=== PATIENT | male | born 1960 | race Caucasian/White ===

== ENCOUNTER 2021-07-23 15:55 | Emergency (ER) | payer OTHER ==
[~2021-07-23] VITALS: Ht 160 cm; Wt 90.7 kg
[2021-07-23 15:59] VITALS: BP 147/83
[2021-07-23] MEDS ORDERED: LEVOTHYROXINE112 MCG PO (17:05)
[2021-07-23] MEDS ORDERED: CELEXA 20 MG TA20 MG PO (17:05)
[2021-07-23] MEDS ORDERED: DESYREL150 MG PO (17:05)
[2021-07-23] MEDS ORDERED: LIPITOR 40 MG T40 M1 PO (17:06)
[2021-07-23] MEDS ORDERED: LOSARTAN POTAS100 MG PO (17:06)
[2021-07-23] MEDS ORDERED: QUETIAPINE FUM200 MG PO (17:06)
[2021-07-23] MEDS ORDERED: QUETIAPINE FUMA50 MG PO (17:06)
[2021-07-23] MEDS ORDERED: METOPROLOL SUCC50 MG PO (17:06)
[2021-07-23 20:12] VITALS: BP 153/73
== END 2021-07-23 20:12 ==
LOC: ER 15:55 → EROBS 19:57 → ER 20:12
PROVIDERS: Physician Assistant
DX: F91.9 Conduct disorder, unspecified (principal); Z20.822 Contact with and (suspected) exposure to COVID-19; I10 Essential (primary) hypertension; F32.9 Major depressive disorder, single episode, unspecified; J45.909 Unspecified asthma, uncomplicated; Z98.890 Other specified postprocedural states; Z79.1 Long term (current) use of non-steroidal anti-inflammatories (NSAID); Z79.891 Long term (current) use of opiate analgesic; Z79.899 Other long term (current) drug therapy; Z88.2 Allergy status to sulfonamides

== ENCOUNTER 2021-07-23 17:55 | Inpatient (IN) | payer OTHER ==
[~2021-07-23] VITALS: Ht 160 cm; Wt 108.4 kg
[~2021-07-23 17:55] MED LIST: CELEXA 20 MG TA20 MG PO; DESYREL150 MG PO; LEVOTHYROXINE112 MCG PO; LIPITOR 40 MG T40 M1 PO; LOSARTAN POTAS100 MG PO; METOPROLOL SUCC50 MG PO; QUETIAPINE FUM200 MG PO; QUETIAPINE FUMA50 MG PO
[2021-07-24 00:21] VITALS: BP 152/84
--- NOTE | 2021-07-24 02:58 | NUR ---
Khari arrived to [facility] from the ER at 2018 via wheelchair and ED staff. He was cooperative throughout the admission process. He presented with a disorganized and tangential thought process as pt would ramble when talking and it was difficult to follow along with what the pt was saying. He was alert and oriented x4 and endorsed passive SI at this time. He denied a plan, although was evasive when answering this question, but was able to contract for safety. He denied HI/MEDINA. Khari is being admitted due to an SI attempt where he intentionally OD'd on #30 of trazodone 150 mg on 07/20. He stated that what the "aircraft engine cylinder mechanic" told him upset him, and he stated "I'm not depressed but when everything happens at once my anxiety gets out of control". Pt expressed that he has a hx of bipolar "with anxiety and OCD" and experienced a panic attack Wednesday morning, prior to his suicide attempt. Pt expressed he immediately called his brother because "I'm too chicken to ". He stated that his last manic episode was around and that he "charges things to his account" to where he spends all of his money. He reported difficulty getting a job as he "made a stupid mistake" and has a misdemeanor for theft and has had difficulty getting a job since. He reports past suicide attempts, the last was Oct where he took more lithium than prescribed. He also reports he lost his father in Oct and was his primary caregiver leading up to his . He spoke about his brothers and neices, and appears to have good support within his family. He stated he was taking trazodone at as he has "racing thoughts at night and can't sleep". Pt arrived to the unit with clothing items that have been inventoried. Pt appeared dischelved and unkept upon arrival. Pt was medication compliant this evening and has been withdrawn and isolative to his room since his arrival. Pt stated he had a BM after his arrival to the unit and did not endorse any physical complaints at this time. Will continue to monitor.
[2021-07-24 05:57] LABS: CHOLESTEROL 176 mg/dL (<200); HDL CHOLESTEROL 46 mg/dL (>40); LDL CHOLESTEROL 102 mg/dL (<100); TC:HDL 3.8 Ratio (Not establshd); TRIGLYCERIDE 142 mg/dL (<150); VLDL 28 mg/dL (<40)
[2021-07-24 06:27] LABS: SERUM ASSESSMENT Clear
[2021-07-24 09:09] VITALS: BP 127/81
[2021-07-24 09:54] LABS: FOLIC ACID 17.8 ng/mL (8.6-58.9)
--- NOTE | 2021-07-24 13:22 | NUR ---
New admit to [facility]. Noted pt triggered high risk screen for 2-14 lb loss and decreased appetite. Pt unavailable at time of visit, unable to determine weight hx. Refused breakfast and lunch today, admitted late last noc. Will add Ensure daily until intake pattern can be assessed. RD to follow up r/t weight and intake hx. Low nutrition risk at this time.
--- NOTE | 2021-07-24 13:30 | NUR ---
RESUMMED CARE FROM OVERNIGHT SHIFT THIS AM, PATIENT IN ROOM LYING QUIET. PATIENT ALERT ORIENTED TIMES 4 PATIENT DENIES HI/AH/VH AT PRESENT DOES HAVE PASSIVE SI. PATIENT STATES HE HAS ANXIETY THAT HE RATES AT A 8, DENIES DEPRESSION. PATIENT ATE BREAKFAST TOOK MEDICATION WITHOUT INCIDENCE, PATIENTS ABDOMEN SOFT BOWEL SOUNDS PRESENT. PATIENTS LUNGS CLEAR PATIENT WHEN ASKED TO EAT IN HIS ROOM FOR MEALS; PATIENT STATED TO ME THAT HE IS SUICIDAL. I TOLD THE PATIENT HE HAS TO STAY IN THE DAY ROOM; I SHUT HIS DOOR. STAFF GOES WITH HIM TO HIS ROOM WHEN HE HAS TO USE THE BATHROOM. I TOLD DR UMANA ABOUT THE INCIDENCE. WILL CONTINUE TO MONITOR PATIENT FOR SAFETY AND BEHAVIORS.
[2021-07-24 19:53] VITALS: BP 125/97
[2021-07-24 21:54] VITALS: BP 127/55
[2021-07-24 22:10] VITALS: BP 125/97
--- NOTE | 2021-07-25 02:19 | NUR ---
Khari was alert and oriented x4 this shift. He was in the dayroom at the beginning of the shift watching TV until he went to bed. He voiced excessive worries regarding needing to get his booster shot and regarding his car. When asked if he was experiencing SI he denied and again mentioned his stressors once returning home. Pt was medication compliant and shortly after went to bed. Pt denied HI/MEDINA. Pt voiced worries about not being able to sleep and was encouraged to let this nurse know if he had difficulties. Pt at this time (0224) has not been noted getting up. Will continue to monitor.
--- NOTE | 2021-07-25 06:05 | NUR ---
At 0550 pt came out of his room expressing he felt sick to his stomach and did not sleep at all. This RN went and talked to him in his room and offered pt zofran which he declined as he stated it was anxiety related. Pt stated that he continues to experience panic attacks and stated multiple times "it's not getting better. I'm going home to the same thing" and appeared preoccupied with what he has to deal with once he's home. Emotional support given and pt encouraged to use deep breathing techniques but he responded "I can't". He also stated "I can't cope". He expressed that he feels he is getting worse and pt was educated that his body is adjusting to his medication changes and that this is not abnormal. Encouragement given to work on coping skills while he is here at the hospital and to talk to Dr. Rodarte regarding his concerns.
[2021-07-25 10:20] VITALS: BP 132/89
--- NOTE | 2021-07-25 11:08 | NUR ---
SPEECH MUMBLED AND DIFFICULT TO UNDERSTAND-CONVERSATION FRAGMENTED AND DISORGANIZED,FREQUENTLY VOCALIZING NEGATIVE THOUGHTS "I'M NO GOOD" "I CAN'T TAKE CARE OF MYSELF" "ITS NOT GOING TO GET ANY BETTER" REPORTS HAVING MOOD SWINGS AND RACING THOUGHTS WELL HEARING A VOICE TELLING HIM THAT HE MAY WELL "GIVE UP" BECAUSE "THINGS ARN'T GOING TO GET ANY BETTER" ASKED FOR ASSIST WITH AM SHOWER STATING "I STINK" AND LATER STATES HE NEEDS SOME UNDERWEAR BECAUSE "I HAD TO WASH MINE OUT BE HAND YESTERDAY" DID GO INTO BATHROOM AND RUN WATER IN SHOWER BRIEFLY BUT REQUIRED STAFF TO WIPE FECES FROM PERINEAL AREA AND PUT ON BRIEF AND ASSIST WITH CLOTHING CHANGE. GAIT IS STEADY WITHOUT ASSISTIVE DEVICES-PACING IN HALLWAYS DURING FREE TIME
--- NOTE | 2021-07-25 12:44 | NUR ---
07-25-2021--1230--Call receoived from patient's daughter re: paperwork being faxed to [facility] where the patient came from. I explained I have tried 3 different times with thrree numbers that were given to me by [employer] and my fax report says "no response". I receoived another number [phone] and tried to fax to this number and it came back no response again. I gave daughter the update I received this am in team meeting. She states her mother called the nurse this AM and has not received a call back and she asked me to have the RN call her mother. RN states she has the mother's number but she has been gone for seven days and doesn't have any information about him. I suggested she have Swathi RAMOS call the and goive her information as she hs been here every day. Call tried again to [employer] ([phone]) no answer; message left to call me back.
--- NOTE | 2021-07-25 18:11 | NUR ---
WILBERT and Dr. Rodarte were able to talk to the Pt's brother/DPOA, Yves Cook over the phone, . Yves was able to give a brief history. Pt has had a lifetime of mental illness. Pt has a dx of Bi-polar and OCD. Pt has been hospitalized several times over the last 15 years. Pt was hospitalized at [address], [facility], and [place]. Pt recieves mental health services through [facility] which includes medication mangment and case mangement. The Pt's case planner is Henry Canales, . Pt's father was his caregiver until he passed several years ago. Since the Pt has lived on his own. Pt has a history of impulsive spending. Yves manages the Pt's money and pays his bills. Pt has no children. Yves is intrested in a prison placement for the Pt. Yves denied that the Pt had any developmental disabilites. There were no other questions or concerns at this time. A family meeting was set for 07/29/2021. This will be by phone. WILBERT will continue to follow. WILBERT did call the Pt case planner and left a message for a call back as of this not there has been no call back.
[2021-07-25 20:28] VITALS: BP 114/65
--- NOTE | 2021-07-26 03:44 | NUR ---
07-25-21 CARE TRANSFERRED 1899 OBSERVED PT WALKING IN HALLWAY. LATER PT AAOX4, VSS, RR EVEN AND NONLABORED ON RA. PT DENIES SI/HI/VAH AND PAIN. PT STATES "THE MEDICATION IS WORKING, I AM NOT HEARING THAT LITTLE VOICE" PT PLEASANT, CALM AND COOPERATIVE THROUGHT NURSING ASSESSMENT. DURING MEDICATION PT HAD NO DIFFICULTIES.
[2021-07-26 07:30] VITALS: BP 144/80
--- NOTE | 2021-07-26 13:15 | NUR ---
Assumed pt care at 0700. pt was alert and oriented x4. Assessments completed, vss. Lungs clear, active bowel sound, Denies pain at this time. Cooperative. Took meds whole, no dificulty noted. Ambulates with a steady gait. No sign of acute distress noted upon assessments. Continent of bowel and bladder this shift. Makes needs known to staff. 1310 pt stated to staff he wants to kill himself. Writter assessed pt. Pt stated he wants to kill him self because he has bed bugs in his house. Pt continued to say he did not want to go back to a house filled with bed bugs. Pt denies having any plan at this time. Pt wander the unit hallway. AT this time pt is in his room. Will continue to monitor.
--- NOTE | 2021-07-26 20:17 | H ---
[facility] [address] [place] [address] HISTORY AND PHYSICAL Name: ELEUTERIO BARRIOS Room #: 517-A ADM IN [facility]#: [id number] Admission: 07/23/21 Attend Phys: David Rodarte DO Discharge: Date of : 58 Report #: [id number] THIS REPORT FOR: cc: Kamlesh Marrufo MD, Steven A. MD Kerstein,David Duvall DO ~ DATE OF SERVICE: 07/24/2021 INPATIENT PSYCHIATRIC EVALUATION ATTENDING PSYCHIATRIST: David Rodarte DO SR COMMUNITY MANAGER: Oralia Can APRN and Josh Anglin MD and his hospitalist team. SOURCES OF INFORMATION: Records from [facility], interview with the patient, chart review. CHIEF COMPLAINT: "Medication is not working." HISTORY OF PRESENT ILLNESS: This is a 60-year-old obese, BMI 42.4, male, has a graf. The patient was apparently brought on 07/20/2021 to [facility]. He overdosed on trazodone, "I have told my brother, I have told my interest in pills. The patient was lethargic, slurring words much of the time, states that he wants help. His called his brother. His brother was apparently out of the town, in [place]. His brother is actually now driving back to [place]. I reached his brother, Yves on [phone]. The patient has had suicide attempts in the past. PAST PSYCHIATRIC HOSPITALIZATIONS: Include numerous psychiatric center admissions in 2009 and 2014. The patient told he took 20-30 trazodone to kill himself. The patient denies drug or alcohol use. He reports being hospitalized in 10/2020 for suicidal ideation. The patient does not remember where. It was 30 tablets of 150 mg trazodone at 9:00 a.m. REVIEW OF SYSTEMS: From [facility]: CONSTITUTIONAL: Denies fever. CARDIOVASCULAR: Denies chest pain. GASTROINTESTINAL: Denies abdominal pain, nausea, vomiting. NEUROLOGIC: Denies headache. PSYCHIATRIC: SI,AH-command. Interestingly, he denied auditory hallucinations at [facility]. He did tell me today that he heard the voice telling him to go ahead and take it. It was hard to get a great history of hallucinations he is having, but from his description, they have been presents in last several weeks. [address] [address] HISTORY AND PHYSICAL Name: ELEUTERIO BARRIOS Room #: 517-A [facility]#: [id number] Admission: 07/23/21 Attend Phys: David Rodarte DO Discharge: Date of : 58 Report #: [id number] MEDICATIONS: Cholecalciferol; vitamin D3, 2000 international units p.o. daily. Lisinopril 10 mg oral daily, levothyroxine 75 mcg oral daily, alprazolam 0.5 mg p.o. 3 times a day, Seroquel 400 mg at bedtime, atorvastatin 5 mg p.o. at bedtime, trazodone 150 mg p.o. at bedtime, aspirin 81 mg oral daily. MEDICAL HISTORY: Hypertension, hypothyroidism, insomnia, obesity. PSYCHIATRIC HISTORY: Depression, suicidal ideation, bipolar disorder. LABORATORY DATA: EKG at [facility] on 07/22/2021 showed QTc interval of 455 milliseconds, QT 408 milliseconds, NJ interval 176 milliseconds, normal sinus rhythm. Labs from 04/19/2021; sodium 140, potassium 4.6, chloride 103, bicarbonate 28, anion gap 14, BUN 13, creatinine 1.1, GFR 72, glucose 124, calcium 9.0, total bilirubin 0.4, AST 30, ALT 37, alkaline phosphatase 152, total protein 8.0, albumin 3.8. White blood cell count 8.2, H and H 14.9 and 47.5, platelet count 274. SARS-CoV-2 rapid was negative. It looks like this was from 07/20. UDS was positive for tricyclics- likely due to quetiapine. UDS was negative. The patient was medically cleared for psychiatric admission. While this was achieved on the and he did not arrive till today- unsure of why the delay. [facility] was faxed information, request. Labs here at [facility]; A1c is pending, triglycerides 142, cholesterol 176, HDL 46, B12 of 519, folate 17.8. TSH 2.003. COVID-19 serology was not detected. PHYSICAL EXAMINATION: VITAL SIGNS: Temperature 36.4, pulse 83, respirations 19, BP 127/81, and O2 sat 91% on room air. GENERAL: Well-developed, disheveled, obese male, apparently stated age. Slow gait, normal station. MENTAL STATUS EXAMINATION: Well-developed, somewhat ill-appearing male, apparently looks stated age. Attention fair. Concentration limited. Speech soft, difficult to understand. Unclear whether this was just psychomotor retardation or some form of dysarthria. Thought process linear and goal directed. Thought content focused on medications, not working. He did admit to staff having SI earlier in the day, denies currently. Some helplessness, hopelessness. Mood and affect depressed, congruent and restricted. Memory not [facility] [address] [place] [address] HISTORY AND PHYSICAL Name: ELEUTERIO BARRIOS Room #: 517-A ADM IN [facility]#: [id number] Admission: 07/23/21 Attend Phys: David Rodarte, DO Discharge: Date of : 58 Report #: [id number] formally tested. I have deferred to Dr. Anglin due to his degree of perceived depression, psychomotor retardation. Insight and judgment limited. Fund of knowledge, no greater than average. EDUCATIONAL HISTORY: Reports high school. Reports he has been on disability. It is unclear if he has ever been or had kids. CRIMINAL JUSTICE HISTORY: Reports he has a misdemeanor burglary charge for stealing cigarettes. FORMULATION: A 60-year-old male, transferred from [facility] after intentional suicide attempt with trazodone. DIAGNOSES: At this time, major depressive disorder, single episode, severe degree; to rule out bipolar disorder by history; multiple morbidities including obesity, hypertension, hyperlipidemia, hypothyroidism. Also, in the hospice today, he denied fever, chills, nausea, vomiting, diarrhea, chest pain, dizziness, blurred vision, or headache. Ten-point review of systems done by the hospitalist today was negative. Physical exam was essentially normal. The patient is a full code. ALLERGIES: SULFONAMIDE DRUGS. STRENGTHS: He is insured, has his brother, sounds like he lives in low income housing. LIMITATIONS: Poor coping skills. He did say his psychiatric provider at [facility] but did not know the name. PLAN: Voluntary admit to [facility] Evaluate and Stabilize Start Risperdal1 mg bid D/C seroquel due to sedation, ? efficacey in this case Call the brother Yves for telephoe conference [phone]. CURRENT MEDICATIONS: In the hospital, atorvastatin 40 mg daily, Celexa 20 mg oral daily, famotidine 20 mg oral daily, levothyroxine 112 mcg oral daily, Cozaar 100 mg p.o. daily. I discontinued the Seroquel. He was on a 250 mg total daily dose and was started on Risperdal 1 mg p.o. b.i.d. for the auditory hallucinations as well as augmentation of the Celexa. I want to wait to get a better psychiatric treatment history tomorrow from the brother. I have asked forensic social worker to attempt to get his recent treatment records from [facility] [place] [address] HISTORY AND PHYSICAL Name: SOPHIEELEUTERIO J Room #: 517-A ADM IN [facility].#: [id number] Admission: 07/23/21 Attend Phys: David Rodarte DO Discharge: Date of : 58 Report #: [id number] Time spent on this case was in excess of 60 minutes, greater than 50% of the time spent reviewing records and coordination of care. <ELECTRONICALLY SIGNED> By: David Rodarte DO 07/26/212016 [id number] [id number] David Rodarte, /nt
--- NOTE | 2021-07-27 02:29 | NUR ---
07/26/21; Pt is alert/oriented, very anxious and not able to redirect. Pt is very fixated on losing his house, not being able to live on his own, not being able to pay his bills. Initially wanted something for sleep but then states' It aint gone help" 1;1 comfort attempt with minimum sucess pt just repeats over and over "it aint gone help" Pt took medications whole without difficulty. Throughout shift remains fixated on his situation. Denies SI/HI/AH/VH.
--- NOTE | 2021-07-27 03:05 | NUR ---
Pt noted by a nurse to be trying to choke himself, Telephone call to FUNDER Carla, order for 1:1, discussed that the plan is to bring him out in the dayroom, Pt has hydroxine ordered gave him PRN dose. Will put the order in for 1:1 while in room but to have him in day room for closer monitoring until able to provide 1:1. Will also make sure oncoming shift is aware and that pt receives further work up. Pt is not able to be redirected and continues to just say his situation is not going to change.
[2021-07-27 06:53] VITALS: BP 154/87
--- NOTE | 2021-07-27 08:51 | NUR ---
07-27-2021--4160--Patient seen at his request. He states he is worried about the bill he is going to get from here. He states he only has Medicare and thinks he makes too much for [employer]. I explained that we could [facility] so [facility] can help him aply for this. He was agreeable to this.
[2021-07-27 15:15] VITALS: BP 149/97
[2021-07-27 20:00] VITALS: BP 154/87
[2021-07-27 20:11] VITALS: BP 127/66
--- NOTE | 2021-07-27 20:42 | NUR ---
Resummed care from overnight shift this am. Client was in activity area resting as client was on room lock out due to previously attempting to choke himself in his room. Client currently remains on room lockout at the time of this note, and is to remain on room lock out or one to one if in room per JORDY Aguirre. Client presented calm and appropriate. Client was oriented 4x and presented with pleasant mood. Client voiced that he was still having depression and anxiety, and rated depression and anxiety 8/10 for both, stating that he was struggling with being in the facility, and adjusting. Client was encouraged to use coping skills at this time, and encouraged to talk to staff. Client stated that he was tired, but that he was not suicidal or homicidal at this moment when quesitons where asked. Client denied audio or visual hallucinations. Client voiced no pain during this time, and stated that he had a bowel movement this morning. Vitals were rechecked to ensure health, and were found to be 149/97 bp, 98 O2. During assessment, client was fixated on how he was going to pay his bills, stating that he needed to contact the IRS, and stated that "the social workers are stealing my wallet" "I need to call about my bills." Client was assured that someone would speak to him from social work, but that no one was stealing his money. Client was also assured that he would be speaking with care team soon. Client agreed, and was calmer after this. At time of this note, client is still on room lock out. No behaviors or concerns at this time.
--- NOTE | 2021-07-28 02:01 | NUR ---
PATIENT WAS SITTING UP IN DINING ROOM THIS EVENING. HE IS A/0X4. HE IS SPEAKS LOW AT TIMES AND ALMOST IF HE MUMBLES. PATIENT DENIES PAIN, SI/HI/AVH. PATIENT IS ON ROOM LOCK OUT AND IS ON 1:1 WHEN HE IS IN HIS ROOM. PATIENT HAD TO START OUT SLEEPING IN DINING ROOM THIS EVENING D/T UNABLE TO BE 1:1 WITH PATIENT. HE WAS FRUSTRATED WITH THIS. DID MOVE PATIENT BACK TO HIS ROOM ONCE ABLE TO BE 1:1 WITH PATIENT. PATIENT HAS BEEN RESTING WITH EYES CLOSED SINCE IN HIS ROOM. HE IS INDEPENDENT WITH CARES. HE HAS BEEN CALM AND COOPERATIVE TONIGHT. BED IN LOW POSITION AND BED ALARM ON. ROUTINE ROUNDS TO ASSESS SAFETY AND STATUS OF PATIENT. PATIENT TOOK HIS MEDS WHOLE WITH WATER. CONTINUING TO MONITOR.
[2021-07-28 09:52] VITALS: BP 148/83
--- NOTE | 2021-07-28 15:34 | NUR ---
DENIES SI THIS AM DURING AM ASSESSMENT-CONTINUES TO MUMBLE/TALK VERY SOFTLY WITH CHIN IN CHEST BUT FREQUENCY SIGNIFICANTLY LESS. ASKS MULTIPLE TIMES TO GO BACK TO ROOM AND APPEARS TO HAVE NO INSIGHT INTO CORRELATION OF HIS SUICIDAL COMMENTS AND GESTURES AND CURRENT ROOM LOCKOUT/RESTRICTIONS. WILL OCCASSIONALLY GET UP AND PACE IN HALLWAY. COMPLIENT WITH MEDS-IS PRESENT IN GROUP BUT LITTLE ACTIVE PARTICIPATION OBSERVED.GAIT STEADY WITHOUT ASSISTIVE DEVICES.
[2021-07-28 20:00] VITALS: BP 108/66
[2021-07-28 20:04] VITALS: BP 108/66
[2021-07-28 22:06] LABS: SYPHILIS AB Non Reactive (Non Reactive)
--- NOTE | 2021-07-28 22:33 | NUR ---
Patient sitting in recliner chair in dining room this evening upon assumption of care. Patient is A/O x4 and able to verbalize needs. Speech is low in volume and patient has a flat affect. Denies pain, SI/HI/AVH at present time. Ambulated independently to patient room at with slow and steady gait. Resting in bed with eyes closed. Bed is in low position, bed alarm on, with patient items within reach. Takes meds whole with sips of water. Cooperative with plan of care. Continue to monitor.
[2021-07-29 10:02] VITALS: BP 142/84
--- NOTE | 2021-07-29 15:03 | NUR ---
Khari was alert and oriented x4 this shift. He presented as calm, cooperative, and pleasant. He was noted frequently smiling this shift and told this RN "I'm not wanting to kill myself today, I finally got some sleep last night". Pt denied SI/HI/MEDINA and contracted for safety stating he would seek out staff if he started to experience suicidal thoughts. He expressed he feels things have improved since admission. He was medication and meal compliant and asked for "anxiety medication" this morning, given at 0948 for an anxiety level of 7/10; 10 being the worst. Pt stated medication was effective in lowering his anxiety. Pt was social with peers this shift but required redirection/education when pt was noted giving a female pt a back massage. Pt responded appopriately to redirection and attended groups this shift. Will continue to monitor.
[2021-07-29 19:30] VITALS: BP 108/55
[2021-07-29 19:50] VITALS: BP 108/55
--- NOTE | 2021-07-30 02:26 | NUR ---
PATIENT CARE WAS RESUMED AT 1900. HE IS ALERT AND ORIENTED . HE AMBULATE AND DENIES PAINS. LUNGS ARE CLEAR BS ACTIVE X4 QUAD. ABLE TO VERABLIZE SOME NEEDS. HE IS CONTINET OF BOWEL AND BLADDER. DENIES PAINS/SI /AVH/HI. BED IS LOW, LOCKED.HE TOOK HIS MEDS WHOLE, CONTINUE CARE AND MONITOR
[2021-07-30 10:46] VITALS: BP 142/84
--- NOTE | 2021-07-30 11:02 | NUR ---
RT Progress Note- Khari has been present in the milieu as he was previously placed on room lockout d/t suicidal statments and ideation. He has also been present in groups though participation is very variable based on his mood. Khari often perseverates on things like his car repair, his brother, or the lawn that needs to be mowed at home. He is very verbal on updating his SI status to the group, which varies from him being suicidal to no longer suicidal and slightly hyper active. EDDY CURRENT INSPECTOR and RT team will continue to encourage his participation and progress.
[2021-07-30 11:07] VITALS: BP 142/84
--- NOTE | 2021-07-30 17:30 | NUR ---
Pt was alert and oriented x4 this shift. He presents with a flat affect and appears more depressed and withdrawn than the previous day. He reports that he did not sleep well last night, "only 2 hours", and repeatedly made statements of, "I'm going back to the same thing" and appeared to be very preoccupied and focused on this. This RN reminded pt that he had a meeting yesterday and SW and staff were working on finding pt an assisted living where he can receive more help but pt did not seem to process this information. He endorsed passive SI but was hesitant to express this information to this RN because "I don't want to be locked out of my room". Pt denied a plan/intent and was able to contract for safety. Pt was encouraged to be honest with staff and that if he can seek out staff when his SI thoughts are worsening, his room would not need to be locked; pt agreed. Pt took periodic naps throughout the day but was otherwise in the dayroom and participated in groups. He voiced wanting to continue group therapy after discharge. He rated his depression 10/10 and anxiety 10/10 this shift; 10 being the worst. He denied HI/MEDINA. Pt made his brother, Yves, his DPOA this shift and Yves came to chart picker pt's keys to his apartment to help pt with his belongings. Pt was given mag hydroxide for constipation as pt stated his last BM was about 3 days ago, this was communicated to Dr. Silva as well. Pt was medication and meal compliant this shift, without difficulty. He has not voiced any physical complaints this shift, will continue to monitor.
[2021-07-30 19:44] VITALS: BP 113/54
--- NOTE | 2021-07-31 00:18 | NUR ---
At onset of cage shift manager pt was resting in bed awake. This shift pt was alert and oriented x4. Pt was not very talkative with show card writer and did not make eye contact. Pt did deny SI, HI and AVH. Pt was compliant with vital signs and medications. Pt requested a sleep PRN and requested hydroxyzine; recieved both with HS medications. Pt appeared calm and pleasant. Pt is a low fall risk and independent. Will continue to monitor.
--- NOTE | 2021-07-31 07:14 | NUR ---
07-30-2021--Call made with MD to DANIEL to advise him that [employer] would only pay through the . Won't pay for weekend. Need to place soon. Yves SANCHEZ lifes in [facility]. Three options given to DANIEL by Doctor 1) return to his apartment with case management from [facility] 2)friend or family mmber he can stay with [facility] to buy some time for placement and long term care social worker solution DANIEL Marinelli will call brother, Henry who is also a DPOA.
[2021-07-31 09:40] VITALS: BP 166/94
--- NOTE | 2021-07-31 15:37 | NUR ---
WILBERT and Dr. Butler spoke with Yves concerning discharge. Yves is in agreement with Pt being placed. Yves stated that he would like the Pt to be placed. Yvess suggested a SNF stay. It was explained that Pt would need to meet critieria for a SNF. PT and ST was ordered on the pt. Yves is in agreement with a respite stay for the Pt also. A meeting was set for 08/04/2021 @ 11am for and update. WILBERT will send out referrals
--- NOTE | 2021-07-31 18:23 | NUR ---
Pt has been calm and co-operative this shift. He came out to the dayroom for meals and group. Upon assessment this morning, he denied having thoughts of SI/HI. Appears to be in better spirits today. He has been smiling at times. This morning, pt also reported he did not sleep well because of his roommate keeping him up throughout the night. Pt complained of having some pain in both of his knees, PRN Tylenol administered and was effective. Pt has not had any other complaints since. Pt had a bowel movement this shift. He has had a good appetite and fluid intake.
[2021-07-31 19:29] VITALS: BP 162/84
--- NOTE | 2021-08-01 04:35 | NUR ---
Assumed care of patient at 1900. Patient AOX3 this shift. Resting in bed with eyes closed at beginning of shift et isolated in room most of the shift. Ambulates room ad fior with steady gait and no balance issues noted. VSWNL. Health assessment with no abnormalities noted at present time. Patient denies SI/HI/AVH at present time. Denies any pain or discomfort at present time. Compliant with medication regimen. Answers questions appropriately when asked and verbalizes thought process without difficulty. Currently resting in bed with eyes closed. Will continue to monitor per unit protocol. PRN Hydroxyzine and Trazodone given with HS meds per patient request for anxiety and insomnia. Both medications appear to have been successful in relieving symptoms.
[2021-08-01 07:06] VITALS: BP 147/85
--- NOTE | 2021-08-01 09:19 | NUR ---
Nutrition followup: pt eating 100% of most meals on 2 gm Na diet. No weight since 07/23. Continue to request updated weight. Noted plan is for placement at discharge. Low nutrition risk.
[2021-08-01 11:20] VITALS: BP 147/85
--- NOTE | 2021-08-01 12:46 | NUR ---
Resummed care from overnight shift this am. Client was in room resting on bed. Client presented oriented to self, situation, and year, though was not oriented to date. Client denied any depression when asked, though did voice anxiety. PRN hydroxizine was given to help with this. Client denied any suicidal or homicidal intention at this time, stating that he felt better than he did when he first arrived. Client denied any visual or audio hallucinations at this time. Lung sounds were clear; bowel sounds present. Per client report, last BM was this morning. Client was given pt education this morning in regard to medications, but declined to verbalize back what he was taking. Client was also encouraged to go to group during this time, but client stated that he did not want to go to group, and declined to participate. During 10am, OT came for client session. Client was encouraged to participate in OT, but stated that he could not at this point. When asked if he wanted a shower, client stated that he had already taken one and didn't want one to staff and OT. Client has been isolating in his room during this shift as he has been doing for several days. 12 minute checks done to ensure safety. No current concerns at this time. Will continue to encouraged client to attend groups and sessions.
--- NOTE | 2021-08-01 16:35 | NUR ---
WILBERT faxed referrals to the following [facility]
[2021-08-01 20:58] VITALS: BP 109/69
--- NOTE | 2021-08-02 00:19 | NUR ---
At onset of shift pt was sitting in the day room. Pt was locked out of his room by day shift. Pt was irritated that he was locked out of his room. Pt was observed talking to himself quietly. Pt denied SI and HI. Pt told RN that he was not having thoughts of hurting himself and pt agreed that he would come to staff if he started having thoughts of SI. RN allowed pt back in his room. Pt was compliant with vital signs and medications; recieved PRN trazodone. Pt was minimally talkative with RN. Speech is quiet, pt made poor eye contact. Pt does smile when answering questions. Will continue to monitor.
[2021-08-02 10:54] VITALS: BP 112/77
[2021-08-02 15:43] VITALS: BP 112/77
--- NOTE | 2021-08-02 18:04 | NUR ---
Resummed care from overnight shift this am. Client was in room resting during this time. Client was approached, and therapeutic communication was used to ask client orientation questions as client has recently been isolating in his room. Client presented oriented to self and place, but stated that he could not note year and date during assessment. Client voiced that he was having anxiety and depression, and rated it 7/10 at this time. Client was educated about his increased dose of risperidone during this time, as this medication can help with these symptoms. Client needed reinforcement on education, and staff reexplained medication. Client stated that he was not feeling suicidal or homicidal at this time. Client also stated that he did not have any auditory or visual hallucinations. Client stated that he did not have pain. Last BM per client was 08/01. Bowel sounds present; lungs clear. Client was encouraged to go to morning movement group, but declined when staff prompted. Around lunch, client voiced that he had anxiety still. Client was encouraged to go to spirital group during this time, especially as he declined prior group. Client stated that he did not want to and that he didn't think it would help with anxiety. Staff talked to client and reinforced coping skills at this time to help with anxiety. Client is currently in room resting after declining to eat dinner in activity area. Dr. Sarkar was notified of client's isolation and behaviors, and a room lock out was requested to help client acclimate to environment and participate in his treatment. No further concerns.
[2021-08-02 20:21] VITALS: BP 144/78
[2021-08-03 05:22] LABS: HEMATOCRIT 41.1 % (42.0-52.0); HEMOGLOBIN 13.6 gm/dL (14.0-18.0); MCH 29.3 pg (26.0-34.0); MCHC 33.1 g/dL (28.0-37.0); MCV 88.6 fL (80.0-100.0); RBC 4.64 mil/uL (4.50-6.00); RDW 13.4 % (10.5-14.5); WBC 7.4 thou/uL (4.0-11.0)
[2021-08-03 05:42] LABS: CREATININE 1.1 mg/dL (0.7-1.3); POTASSIUM 3.8 mmol/L (3.5-5.1); TOTAL BILIRUBIN 0.5 mg/dL (0.2-1.0); TOTAL PROTEIN 6.7 g/dL (6.4-8.2)
--- NOTE | 2021-08-03 05:50 | NUR ---
PATIENT AOX3 MAKES NEEDS KNOWN.PATIENT HAD A FLAT AFFECT, POOR EYE CONTACT, FAIR GROOMING AND HYGIENE. PATIENT ENCOURAGED FLUIDS. PATIENT AMBULATES IN THE ROOM AND HALLWAY WITH STEADY GAITS. PATIENT IN BED ASLEEP AT THIS TIME BREATHING REGULAR AND UNLABOURED.
[2021-08-03 10:04] VITALS: BP 146/97
--- NOTE | 2021-08-03 12:04 | NUR ---
PATIENT CARE ASSUMED AT 0700, PATIENT STILL IN BED SLEEPING, GOT UP FOR BREAKFAST, ALERT AND OREINTED X3, TOOK MEDICATION WHOLE, BREATH SOUND CLEAR, ACTIVE BOWEL SOFT WITH SOFT AND ROUNDED AMBDOMEN, B/P OF 146/97, REG HR, SKIN INTACT WITH NO EDEMA NOTED, PATIENT STAYS MOSTLY IN THE ROOM TODAY BUT CALM AND COOPERATIVE WITH CALM, NO BEHAVIOR CHANGE FOR NOW, PATIENT AMBULATE ON A STAEDY GAIT, TOILET HIMSELF INDEPENDENTLY, DENIES SI/HI. WILL CONTINUE TO MONITOR PATIENT FOR SAFETY AND BEHAVIOR
[2021-08-03 19:25] VITALS: BP 157/86
[2021-08-03 19:40] VITALS: BP 157/86
--- NOTE | 2021-08-03 23:19 | NUR ---
Assumed care on 08/03/21 @ 1900, in his room lying in bed, eyes open, A&Ox4, reported general pain of 6/10 cooperated with assessment and compliant with medication administration. HRRR, Lung sounds CTA bilat, somewhat diminished bases, ABD N x 4Q. Laid back down in bed, and seems to be sleeping with eyes closed and respirations even and unlabored at this writing. Will continue to monitor for safety and comfort as per unit protocol.
[2021-08-04 10:20] VITALS: BP 146/93
[2021-08-04 10:43] VITALS: BP 146/93
--- NOTE | 2021-08-04 14:05 | NUR ---
Khari was alert and oriented x4 this shift but appears to have poor insight. He appears anxious, withdrawn, and worried this shift. He appears very preoccupied with things he has to take care of such as "I have to get my mail and my covid shot, and I have to check on my tags too". Pt was given emotional support but appears resistant to education and encouragement as he is overly worried. He denied SI/HI/MEDINA but was later noted stating "I'm going to commit suicide" which was stated under his breath. At that time pt was told to sit in line of staff of site, which pt was compliant with. He was then told that the plan is for him to either D/C to a nursing facility on or to his brother, Yves's home. Pt appeared a little relieved at this and education given, pt denied SI and appeared more calm at this time. Pt showered and is currently resting in his room. Pt was medication and meal compliant this shift, without difficulty. Will continue to monitor. Pt able to contract for safety at this time.
--- NOTE | 2021-08-04 15:18 | NUR ---
SW sent referrals to the following [facility]
--- NOTE | 2021-08-04 17:22 | NUR ---
WILBERT and Dr. Callaway had a phone meeting with the Pt's family and disability case manager. The family is still intrested in placement. ELINOR Figueroa, informed [facility] offers respite and he would inquire if there were any opening in the facility. WILBERT informed that the Pt is now [place] medicaid pending. WILBERT explained the difficulty of placing the Pt due to Pt's SI and attempt. Although the Pt has denied SI since 07/30/2021, this would still be a barrier to a placement. Henry made a suggestion of the Pt moving back into the family home with a plan for Pt's brothers and Henry to check on the Pt daily. WILBERT and Dr. Rodarte insisted this be the absolute last go to if placement in an LTC and Respite does not work out. There were no other questions or concerns at this time. WILBERT will continue to follow
[2021-08-04 19:18] VITALS: BP 135/71
--- NOTE | 2021-08-05 05:08 | NUR ---
Assumed pt's care beginning of this pm shift. Pt alert and oriented x4. Pt was in his bed at time of assessment. Denies si/hi. Did verbalize having depression. Pt was calm and cooperative with care. No agitation or aggression noted. Took meds per emar. Denied pain this shift. Able to ambulate to the bathroom ad fior. Pt continues to sleep in his room at this time. Nursing to continue to monitor.
[2021-08-05 09:59] VITALS: BP 132/73
[2021-08-05 13:25] VITALS: BP 132/73
--- NOTE | 2021-08-05 17:48 | NUR ---
Pt was alert and oriented x4 throughout the day but appeared to have poor insight and judgement. He was ruminating on his situation and expressed having "racing thoughts". He appeared withdrawn, depressed, and anxious this morning and endorsed SI. He denied a plan/intent but did state he felt like acting on these thoughts, therefore pt was locked out of his room so he could be in line of sight of staff. Pt was given emotional support and reassurance but pt appeared too preoccupied to retain the reassurance and education provided. This was communicated to Dr. Rodarte and order for hydroxyzine 25 mg q6 hours PRN was received and given at 0951 (pt stated hydroxyzine was effective in past when given this admission). After administration pt continued to pace the halls and voice "racing thoughts". This afternoon pt started to voice somatic complaints that he was feeling sick and dizzy, and this RN believed pt was working himself up to feel sick as there was no acute change otherwise. Dr. Rodarte was updated and order received for a once time dose of ativan 1.5mg PO. Shortly after pt was noted smiling during group. After group and the continuation of the evening pt has been smiling and more talkative with staff. He told this RN a recipe he likes and called ativan "the magic pill" stating he is "happy" and the "racing thoughts are gone". He currently denies SI and is able to contract for safety. He was medication and meal compliant throughout the day and voiced he had a BM this morning. Will continue to monitor.
[2021-08-05 20:33] VITALS: BP 103/52
--- NOTE | 2021-08-06 05:14 | NUR ---
Assumed pt's care this HS shift. Pt alert and oriented. Calm and had a happy affect on assessment, sitting in the day. Pt did verbalize having anxiety and depression but voiced it was decreased compared to daytime. Pt also denied SI/intent. Pt voiced he felt so much better after taking ativan. Pt voiced that it turned off the racing thought, that it "flipped the switch". Pt remained pleasant and cooperative. Voiced he may be able to go live with his brother. Pt took meds without issues. Remains compliant with care. Currently in his room, sleeping. Nursing to continue to monitor.
--- NOTE | 2021-08-06 08:49 | NUR ---
RT Progress Note- Khari has been present in all groups throughout this review period, though he continues to isolate to his room during down time. His mood level shifts very easily. He continues to endorse depression and on few occasions has expressed suicidal ideation which has been communicated to the team. RT team will encourage continued participation and progress.
[2021-08-06 10:21] VITALS: BP 155/88
[2021-08-06 10:27] VITALS: BP 155/88
--- NOTE | 2021-08-06 15:58 | NUR ---
Khari has been alert and oriented x4 this shift. He presented very anxious this morning and expressed he was having "racing thoughts". PRN hydroxyzine was given without effectiveness. He endorsed active SI but denied a plan but did feel like acting on these thoughts. As soon as he woke up this morning he stated "I have to get my booster shot". He was restless and came to the nurses station frequently throughout the morning. He was encouraged to try to change his negative thoughts into more positive ones such as instead of thinking negatively about going to his brothers thinking how he has a safe place to go to and a family that supports him. He was resistant to this and expressed he was "hopeless". Pt then stated "I'm going to kill myself unless I get that pill" referring to ativan. During treatment team they discussed this and pt was ordered ativan PO 0.5mg twice a day. After receiving his first dose this RN asked pt about an hour later how he was doing, and he voiced some decrease in his anxiety, denied SI "since taking the pill", but continue to appear depressed with a flat affect and was more withdrawn. He has since continued to deny SI but has remained in line of sight of staff throughout the day. He was medication and meal compliant this shift, without difficulty. He had a BM this shift and his only complaint was bilateral knee pain, tylenol given per MAR with effectiveness. Will continue to monitor.
--- NOTE | 2021-08-06 16:52 | NUR ---
WILBERT spoke with the DON at [facility] in [place]. They are able to accept the Pt. They want to bring the Pt in under skilled rehab. WILBERT informed this Pt most likely would not qualify for this service as he has not skilled needs at this time. WILBERT did inform that the Pt's brother has offered to pay for respite for a month until his medicaid is approved. RICHARD stated she would call WILBERT back concerning the matter.
--- NOTE | 2021-08-06 16:55 | NUR ---
WILBERT recieved a VM from ELINOR Figueroa, concerning repite for the Pt. Henry informed he has been able to secure respite with [facility] provider. Henry stated he would call WILBERT morning concerning the issue.
[2021-08-06 19:15] VITALS: BP 120/75
--- NOTE | 2021-08-06 21:47 | NUR ---
Pt was in the dayroom at time of assessment. Alert and oriented x4. Was calm and cooperative with care. Pt denies racing thoughts, SI. Pt acknowledged some anxiety and depression. Voiced it is better now compared to earlier in the day. Pt took meds without issues. Currently in his room sleeping. Nursing to continue to monitor.
--- NOTE | 2021-08-06 23:28 | NUR ---
Pt woke up, was asking for his , "I want to see her". Starting to get agitated, holding the door like he was going to close it and not allowing anyone in. Pt followed ORANGE GROWER to dayroom. Pt currently sitting in the dayroom, calm.
[2021-08-07 09:59] VITALS: BP 142/64
[2021-08-07] MEDS ORDERED: LIPITOR40 MG PO (11:39)
[2021-08-07] MEDS ORDERED: COZAAR100 MG PO (11:40)
[2021-08-07] MEDS ORDERED: METOPROLOL SUCC50 MG PO (11:40)
[2021-08-07] MEDS ORDERED: EFFEXOR XR75 MG PO (11:41)
[2021-08-07] MEDS ORDERED: RISPERDAL 1 MG T1 MG PO (11:41)
[2021-08-07] MEDS ORDERED: STIMULANT LAXA1 EACH PO (11:42)
[2021-08-07] MEDS ORDERED: SYNTHROID112 MC1 PO (11:43)
--- NOTE | 2021-08-07 16:31 | NUR ---
Assumed pt care at 0700. Pt was alert and oriented x4. Assessments completed, vss. Lungs clear, active bowel sound. NO sign of acute distress noted upon Assessment. Took meds whole, no difficulty noted. Denies si/hi, Denies Pain. Ambulates with a steady gait. Calm and cooperative with care. Continent of bowel and bladder. Makes needs known to staff. Independent with toileting. Pt was D/C at 1305 via w/c. Pt was d/c with his belongings, D/C packet, d/c summary. Report was called at 1221 to Inez at [facility] snf.
--- NOTE | 2021-08-10 15:42 | D ---
[facility] [address] [address] DISCHARGE SUMMARY Name: ELEUTERIO BARRIOS Room #: 520B-B DIS IN M.R.#: [id number] Admission: 07/23/21 Attend Phys: David Rodarte DO Discharge: 08/07/21 Date of : 58 Report #: [id number] THIS REPORT FOR: cc: Kamlesh Marrufo MD, Steven A. MD Kerstein,David Duvall DO ~ DATE OF SERVICE: 08/07/2021 INPATIENT PSYCHIATRIC DISCHARGE SUMMARY ATTENDING PSYCHIATRIST: David Rodarte D.O. GRITTING MACHINE OPERATOR: Josh Anglin M.D. 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 MEDICAL COMORBIDITIES: Include morbid obesity, hypertension, hyperlipidemia, and hypothyroidism. The patient is discharging to the [facility]. The patient requires 24-hour assistance and supervision. Psychiatric and medical care per receiving facility. He also is being a client at case management at [facility]. His pillowcase sewer, Henry, was very involved in assisting with discharge planning. No alcohol, no illicit drugs. The patient is a nonsmoker. DISCHARGE MEDICATIONS: As follows. Atorvastatin 40 mg oral daily for hyperlipidemia, metoprolol succinate 100 mg oral daily for hypertension, losartan 100 mg oral daily for hypertension, venlafaxine extended release 150 mg oral daily, risperidone 3 mg oral twice daily for psychosis, senna docusate 2 tabs oral twice daily for bowel motility, hold if diarrhea, levothyroxine 112 mcg oral daily at 0700 hours for thyroid replacement. The patient was a FULL CODE during this admission. LABORATORY DATA: Significant laboratories are as follows: Hematology: White count 7.4, H and H 13.6 and 41.1, platelet count 252. Chemistry: Sodium 135, potassium 3.8, chloride 102, bicarbonate 26, anion gap 7, BUN 19, creatinine 1.1, estimated GFR 68, glucose 105. A1c 6.0, calcium 9.0, total bilirubin 0.5, AST 29, ALT 69, alkaline phosphatase 131, total protein 6.7, albumin 3.0. Triglycerides 142, cholesterol 176, LDL 102, HDL 46, B12 level 519, total vitamin D 17.8. TSH 2.003. Syphilis serology nonreactive. SARS-CoV-2 PCR not detected on 07/23, 07/26, 07/28, and 08/04. Head CT scan was done on 07/29 as a part of dementia workup shows no evidence of acute intracranial hemorrhage or other acute intracranial abnormality. [address] [address] DISCHARGE SUMMARY Name: ELEUTERIO BARRIOS Mahsa Room #: 520B-B [facility] IN M.R.#: [id number] Admission: 07/23/21 Attend Phys: David Rodarte, Discharge: 08/07/21 Date of : 58 Report #: [id number] REASON FOR ADMISSION: Back on 07/23, a 60-year-old single morbidly obese male transferred from [facility] following an intentional overdose. This was felt to be a suicide attempt. His brother, Yves, was going to be moving back to [facility] from [place] shortly. A day or so after admission, the patient admitted auditory command hallucinations to harm himself. HOSPITAL COURSE: The patient was admitted to Geriatric Psychiatry Unit. The patient was switched from Celexa to venlafaxine due to efficacy concerns of him being at the maximum dose available for this medication. We started him on Risperdal once he admitted to the auditory hallucinations. This was titrated to 3 mg b.i.d. The patient during the admission at times a bit medication-seeking. Benzodiazepine and Ativan was used intermittently. Also, his initial cognitive screening was in single digits on SLUMS. We did the usual laboratories including syphilis, B12 and a head CT. They were generally unremarkable. Later on in the admission, the speech therapist did Max Cognitive Assessment, the patient had improved to 17/30. We had several family meetings where the need for placement was discussed, difficulties involved in finding that and arranging care for the patient. I thought until day of discharge, he was going to need to go to some crisis housing that [facility] provide, but the [facility] came through. On the day of discharge, the patient was not suicidal, homicidal, and felt to be ready for step-down. PHYSICAL EXAMINATION: VITAL SIGNS: Temperature 36.7, pulse 101, respirations 18, BP 140/64, and O2 sat 94%. MUSCULOSKELETAL: Normal gait and station, suboptimal hygiene. MENTAL STATUS EXAMINATION: This is a well-developed, morbidly obese male, appearing older than stated age. Attention limited. Concentration limited. Speech slowed. Difficulty articulating at times. Thought process: Linear, limited. Thought content: Relative poverty of thought. Mood and affect, okay constricted, congruent. Denied SI, HI. Some helplessness, no hopelessness. Memory not formally tested. Insight and judgment were limited. Fund of knowledge below average. PROGNOSIS: For this patient is guarded as he appears to have an early neurodegenerative disease on top of his depression with psychotic features. The patient will require extensive support in his new living situation. I think his brother, Yves, is aware of this and also his brother, [facility] [address] [place] [address] DISCHARGE SUMMARY Name: ELEUTERIO BARRIOS Room #: 520B-B DIS IN M.R.#: [id number] Admission: 07/23/21 Attend Phys: David Rodarte DO Discharge: 08/07/21 Date of : 58 Report #: [id number] Also, the patient should not drive. <ELECTRONICALLY SIGNED> By: David Rodarte DO 08/10/21 [id number] David Rodarte DO /nt
== END 2021-08-07 13:00 | DRG 885 ==
LOC: SBH
PROVIDERS: Nurse Practitioner Family; Psychiatry & Neurology Psychiatry; ADMIT Psychiatry & Neurology Psychiatry; ATTEND Psychiatry & Neurology Psychiatry
DX: F32.3 Major depressive disorder, single episode, severe with psychotic features (principal); F01.51 Vascular dementia, unspecified severity, with behavioral disturbance; T43.212A Poisoning by selective serotonin and norepinephrine reuptake inhibitors, intentional self-harm, initial encounter; R45.851 Suicidal ideations; F03.91 Unspecified dementia, unspecified severity, with behavioral disturbance; Z20.822 Contact with and (suspected) exposure to COVID-19; I10 Essential (primary) hypertension; E78.5 Hyperlipidemia, unspecified; E03.9 Hypothyroidism, unspecified; F29 Unspecified psychosis not due to a substance or known physiological condition; Z88.2 Allergy status to sulfonamides; Y92.89 Other specified places as the place of occurrence of the external cause
CPT/HCPCS: 10880